=== PATIENT | female | born 1955 | race Caucasian/White ===

== ENCOUNTER → 2017-06-28 | Outpatient (CLI) | payer SELFPAY ==
[~2017-06-28] MED LIST: ATIVAN 1MG T1 MG/TAB PO; NORCO 325 MG-51 TAB PO; PREDNISONE20 MG PO
== END ==
LOC: MHCPAIN 14:09
DX: G89.29 Other chronic pain (principal); M47.817 Spondylosis without myelopathy or radiculopathy, lumbosacral region; M53.3 Sacrococcygeal disorders, not elsewhere classified; M79.1 Myalgia; F17.200 Nicotine dependence, unspecified, uncomplicated
CPT/HCPCS: G0463

== ENCOUNTER → 2017-09-25 | Outpatient (CLI) | payer BC | LOC: MHCPAIN 14:02 | DX: G89.29 Other chronic pain (principal); M47.817 Spondylosis without myelopathy or radiculopathy, lumbosacral region; M53.3 Sacrococcygeal disorders, not elsewhere classified | CPT/HCPCS: G0463 ==

== ENCOUNTER 2017-10-02 14:00 | Outpatient (RCR) | payer BC | END 2017-10-17 08:50 | disposition home or self-care (01) | LOC: WSPT 14:00 | DX: M47.817 Spondylosis without myelopathy or radiculopathy, lumbosacral region (principal); M53.3 Sacrococcygeal disorders, not elsewhere classified; M79.1 Myalgia ==

== ENCOUNTER → 2018-03-13 | Outpatient (REF) | LOC: ZLAB.WCH 09:12 | DX: Z01.89 Encounter for other specified special examinations (principal) ==